=== PATIENT | female | born 1945 | race Caucasian/White ===

== ENCOUNTER 2022-06-02 13:26 | Inpatient (IN) | payer OTHER ==
[~2022-06-02] VITALS: Ht 167.6 cm; Wt 99.3 kg
--- NOTE | 2022-06-02 13:34 | NUR ---
SE RECIBE PTE ALERTA Y ORIENTADA X3, EN AMBULANCIA CON ESPOSO. PTE INDICA ESTAR EN CRUSERO Y QUE LA MISMA LA LUZMA A ER POR PNEUMONIA. SE VIDHI SV, AL MOMENTO SATURANDO ENTRE 92%-95% CON CANULA NASAL. SE ACOMODA EN NARESH, PTE NO PRESENTA DOLOR AL MOMENTO.
--- NOTE | 2022-06-02 14:25 | NUR ---
SE ORIENTA PTE Y FAMILIAR SOBRE TX, REFIEREN ENTENDER. SE REALIZA VIDHI DE MUESTRAS BAJO MEDIDAS ASEPTICAS Y ESTERILES, SE ENTREGA ENVASE U/A A PTE. PTE CONECTADA A OXIMETRIA. PERSONAL DE TERAPIA RESPIRATORIA REALIZA ABG. SE NOTIFICA XRAY, PTE PENDIENTE AL MISMO. SE MANTIENE EN OBSERVACION.
[2022-06-02] MEDS ORDERED: ADULT LOW DOSE81 M1 PO (14:29)
[2022-06-02] MEDS ORDERED: OMEPRAZOLE MAGN20 MG PO (14:29)
[2022-06-02] MEDS ORDERED: LEVOTHYROXINE175 MC1 PO (14:29)
[2022-06-02] MEDS ORDERED: RISPERDAL1 MG (14:30)
[2022-06-02] MEDS ORDERED: OXYCODONE HCL10 M1 PO (14:30)
[2022-06-02] MEDS ORDERED: LIPITOR40 M1 PO (14:30)
== END 2022-06-04 11:47 | disposition left against medical advice (07) | DRG 177 ==
LOC: ER 13:26 → MEDJ 18:48 → SEC-K 18:48 → MEDJ 06-03 07:01
PROVIDERS: ADMIT Internal Medicine; ATTEND Internal Medicine
PROC: 8E0ZXY6 Isolation (ICD-10-PCS; principal; 2022-06-02)
PROC: 3E0F7GC Introduction of Other Therapeutic Substance into Respiratory Tract, Via Natural or Artificial Opening (ICD-10-PCS; 2022-06-02)
PROC: 4A033R1 Measurement of Arterial Saturation, Peripheral, Percutaneous Approach (ICD-10-PCS; 2022-06-02)
PROC: 4A12X4Z Monitoring of Cardiac Electrical Activity, External Approach (ICD-10-PCS; 2022-06-02)
DX: U07.1 COVID-19 (principal); J12.82 Pneumonia due to coronavirus disease 2019